=== PATIENT | female | born 1955 | race Caucasian/White ===

== ENCOUNTER → 2018-03-01 | Outpatient (CLI) | payer OTHER | LOC: M.RAD 10:40 | DX: N63.14 Unspecified lump in the right breast, lower inner quadrant (principal); N63.21 Unspecified lump in the left breast, upper outer quadrant; R92.8 Other abnormal and inconclusive findings on diagnostic imaging of breast ==

== ENCOUNTER → 2018-09-06 | Outpatient (CLI) | payer OTHER | LOC: M.RAD 08-16 13:31 | DX: R92.1 Mammographic calcification found on diagnostic imaging of breast (principal); R92.2 Inconclusive mammogram ==

== ENCOUNTER → 2020-10-14 | Outpatient (CLI) | payer OTHER | LOC: M.RAD 10:30 | PROVIDERS: ATTEND Nurse Practitioner Family | DX: Z12.31 Encounter for screening mammogram for malignant neoplasm of breast (principal); N64.89 Other specified disorders of breast ==